=== PATIENT | female | born 1955 | race Caucasian/White ===

== ENCOUNTER 2023-09-02 09:15 | Emergency (ER) | payer MEDICARE, SELFPAY ==
[2023-09-02 09:18] VITALS: BP 141/88; PULSE 71; RESP 18; TEMP 37; O2SAT 97; BMI 42.7
--- NOTE | 2023-09-02 10:10 | EXP.UTC ---
Discharge Plan Disposition Patient Disposition: Home, Self-Care Condition: Good Prescriptions Prescriptions: New methylprednisolone [Medrol (Robert)] 4 mg tablets,dose pack See Rx Instructions .Route .COMPLEX 6 Days Qty: 21 0RF Rx Instructions: taper pack; cefdinir 300 mg capsule 300 mg PO BID Qty: 20 0RF guaifenesin [Mucinex] 600 mg tablet extended release 12hr 1,200 mg PO BID PRN (Reason: cough) Qty: 20 0RF No Action atorvastatin 40 mg tablet 40 mg PO DAILY amlodipine 10 mg tablet 10 mg PO DAILY esomeprazole magnesium 40 mg capsule,delayed release(DR/EC) 40 mg PO DAILY sertraline 25 mg tablet 25 mg PO DAILY montelukast 10 mg tablet 10 mg PO DAILY lisinopril 40 mg tablet 40 mg PO DAILY Referrals Follow up/Referrals: Provider,Referral, MD [Primary Care Provider] - See instructions Activity Restrictions/Add. Instructions Additional Instructions/Restrictions: *Monitor Temp, Over the counter Motrin or Tylenol as directed/as needed Tylenol every 4 hours and Motrin every 6 hours (as long as your family doctor has told you that you can take it) for fever or pain. and straight to ER if unable to lower temp less than 101.0 after medication given *Warm salt water gargles may help to soothe the throat *Throat Lozenges? *Warm fluids like tea with honey may help to soothe the throat? *Sleep elevated *Humidifier/Vaporizer Take medication as prescribed Follow up IMMEDIATELY for new or worsening symptoms or no Noticeable improvement over the next 48-72 hours. 911 for difficulty breathing or swallowing Clinical Impressions Clinical Impression: Bronchitis Sinusitis Qualifiers: Sinusitis location: unspecified location Chronicity: unspecified Qualified Code(s): J32.9 - Chronic sinusitis, unspecified Instructions Patient Instructions: DI for Sinusitis, Sinusitis, Acute Bronchitis Discharge ED Provider: Elizabeth Rodriguez [facility] General Stated complaint: congestion, cough Mode of Arrival: Ambulatory Source of Information: Patient Limitations: No Limitations Time Seen by Provider: 09/02/23 10:10 Description of Symptoms (Recalled from Triage Doc. by RN): productive cough HEENT Symptoms (Recalled from RN notes): Yes Resp Symptoms (Recalled from RN notes): No Skin Symptoms (Recalled from RN notes): No MS Symptoms (Recalled from RN notes): No Functional Status (Recalled from RN notes): n/a History of Present Illness Provider Complaint: Patient states that she has been having sinus congestion and pressure drainage in the back of her throat and cough States that at times she will cough up the drainage from the back of her throat States that today she was still not feeling well so she came in to get something to help Related Data Home Medications Medication Instructions Recorded Confirmed amlodipine 10 mg tablet 10 mg PO DAILY 09/02/23 09/02/23 atorvastatin 40 mg tablet 40 mg PO DAILY 09/02/23 09/02/23 esomeprazole magnesium 40 mg 40 mg PO DAILY 09/02/23 09/02/23 capsule,delayed release lisinopril 40 mg tablet 40 mg PO DAILY 09/02/23 09/02/23 montelukast 10 mg tablet 10 mg PO DAILY 09/02/23 09/02/23 sertraline 25 mg tablet 25 mg PO DAILY 09/02/23 09/02/23 Previous Rx's Medication Instructions Recorded cefdinir 300 mg capsule 300 mg PO BID #20 caps 09/02/23 guaifenesin 600 mg tablet, 1,200 mg PO BID PRN cough #20 tabs 09/02/23 extended release 12 hr (Mucinex) methylprednisolone 4 mg tablets in See Rx Instructions .Route 09/02/23 a dose pack (Medrol (Robert)) .COMPLEX 6 days #21 tabs Allergies Allergy/AdvReac Type Severity Reaction Status Date / Time sulfamethoxazole Allergy Verified 09/02/23 09:58 [From Bactrim] trimethoprim [From Bactrim] Allergy Verified 09/02/23 09:58 Worker's Comp Is this a Worker's Comp case?: No [facility] Disclaimer: The information contained in this section may leger
[2023-09-02 10:25] VITALS: BP 141/88; PULSE 71; RESP 18; TEMP 37; O2SAT 97
== END 2023-09-02 10:25 | disposition home or self-care (01) ==
PROVIDERS: Emergency Provider Nurse Practitioner
DX: J20.9 Acute bronchitis, unspecified (principal); J01.90 Acute sinusitis, unspecified
CPT/HCPCS: 99204; 99212; G0463